=== PATIENT | male | born 1995 | race Caucasian/White ===

== ENCOUNTER 2018-05-16 20:06 | Observation (INO) | payer SELFPAY ==
[2018-05-16 20:46] LABS: EOS % 0.2 % (0-6); HEMOGLOBIN 16.8 gm/dl (14.0-18.0); LYMPH % 20.8 % (16-45); MEAN CELL VOLUME 92.3 fl (81-97); MEAN CORPUSCULAR HEMOGLOBIN 32.3 pg (27-33); PLATELET COUNT 131 K/uL (130-400); RED CELL DISTRIBUTION WIDTH 12.7 % (11.5-14.5); WHITE BLOOD COUNT W/O DIFF 5.2 K/uL (4.2-12.2)
[2018-05-16 20:56] LABS: BLOOD UREA NITROGEN 10 mg/dL (6-20); CREATININE 1.1 mg/dL (0.7-1.2); EST GLOMERULAR FILTRATION RATE > 60 mL/min
[2018-05-16 20:59] LABS: GLUCOSE,RANDOM 90 mg/dL (74-109)
[2018-05-16] MEDS ORDERED: CLINDAMYCIN 600MG/50ML PREMIX 600 MG/50 ML BAG IVPB ONE (21:08)
--- NOTE | 2018-05-16 21:11 | Emergency Department Record ---
History of Present Illness - General Chief complaint: Abscess Stated complaint: LT MIDDLE FINGER INFECTION Time Seen by Provider: 05/16/18 20:49 Source: Patient Mode of Arrival: Ambulatory Limitations: No limitations - History of Present Illness Initial comments: The patient is here due to a L 3rd finger infection for 4 days. Now the finger is quite swollen and tender and he has red streaking up to his axilla. The patient also has had a fever for about 24 hours. He denies any other issues. MD complaint: Abscess/boil Onset/Timin -: Days(s) Location: L hand Severity: Moderate Severity scale (1-10): 3 Quality: Aching Consistency: Constant, Getting worse Improves with: None Worsens with: None Context: None Associated symptoms: Denies other symptoms Treatments Prior to Arrival: Attempted to drain pus at home - Related Data Home Medications Medication Instructions Recorded Confirmed Last Taken Fluoxetine HCl 20 mg PO DAILY 05/16/18 05/16/18 Unknown Allergies Allergy/AdvReac Type Severity Reaction Status Date / Time No Known Drug Allergies Allergy Unverified 05/16/18 19:51 Travel Screening - Travel/Exposure Within Last 30 Days Have you traveled within the last 30 days?: No Review of Systems Constitutional: Reports: Chills, Fever, Malaise Eyes: Denies: Eye discharge ENT: Denies: Congestion Respiratory: Denies: Cough, Dyspnea Cardiovascular: Denies: Arrhythmia Endocrine: Denies: Fatigue Gastrointestinal: Denies: Abdominal pain Genitourinary: Denies: Dysuria Musculoskeletal: Denies: Arthralgia Past Medical History - SOCIAL HISTORY Smoking Status: Light tobacco smoker (<10/day) Alcohol Use: Occasional Drug Use: None - RESPIRATORY Hx Respiratory Disorders: No - CARDIOVASCULAR Hx Cardio Disorders: No - NEURO Hx Neuro Disorders: No - GI Hx GI Disorders: No - Hx Genitourinary Disorders: No - ENDOCRINE Hx Endocrine Disorders: No - MUSCULOSKELETAL Hx Musculoskeletal Disorders: No - PSYCH Hx Psych Problems: Yes Hx Depression: Yes - HEMATOLOGY/ONCOLOGY Hx Hematology/Oncology Disorders: No Family Medical History Any Significant Family History?: No Physical Exam - General General Appearance: Alert, Oriented x3, Cooperative, No acute distress - Head Head exam: Atraumatic, Normocephalic, Normal inspection - Eye Eye exam: Normal appearance, PERRL - Neck Neck exam: Normal inspection, Full ROM. negative: Tenderness - Respiratory Respiratory exam: Normal lung sounds bilaterally. negative: Respiratory distress - Cardiovascular Cardiovascular Exam: Regular rate, Normal rhythm, Normal heart sounds - Extremities Extremities exam: Full ROM (There is full flexion and extension of the L 3rd finger with no signs of a flexor tenosynovitis.), Tenderness (over the L 3rd finger. ). negative: Normal inspection (There is an erythematous dorsal L third finger at the nail fold with erythema and streaking up to the L axilla. ) Course Vital Signs 05/16/18 20:17 Temperature 100.7 F H Pulse Rate [ 96 H Pulse Ox Probe] Respiratory 20 Rate Blood Pressure 119/76 [Right Arm] Pulse Ox 98 - Reevaluation(s) Reevaluation #1: Procedure note: The L 3rd finger was anesth. using a digital block technique using 3 mls of Lido 1%. The dorsal nail fold was cleansed with alcohol and a # 11 blade was used to I and D the presumed paronychia. Unfortunately no purulence was removed and only some clear fluid and blood. There were no complications. 05/16/18 21:49 Medical Decision Making - Lab Data Result diagrams: 05/16/18 20:35 05/16/18 20:35 Lab Results 05/16/18 05/16/18 05/16/18 Range/Units 20:35 20:35 20:35 WBC 5.2 (4.2-12.2) K/uL RBC 5.20 (4.40-5.70) M/uL Hgb 16.8 (14.0-18.0) gm/dl Hct 48.0 (42.0-52.0) % MCV 92.3 (81-97) fl MCH 32.3 (27-33) pg MCHC 35.0 (32-36) g/dl RDW 12.7 (11.5-14.5) % Plt Count 131 (130-400) K/uL MPV 11.0 H (7.4-10.4) fl Gran % 64.0 (47-80) % Lymphocytes % 20.8 (16-45) % Monocytes % 14.0 H (0-9) % Eosinophils % 0.2 (0-6) % Basophils % 1.0 (0-6) % Sodium Cancelled 138 Potassium Cancelled 3.8 Chloride Cancelled 97 L Carbon Dioxide Cancelled 27.0 Anion Gap Cancelled 14.0 BUN Cancelled 10 Creatinine Cancelled 1.1 Estimated GFR Cancelled > 60 Random Glucose Cancelled 90 Lactic Acid 1.3 (0.5-2.2) mmol/L Calcium Cancelled 8.8 Disposition Disposition: Admit Clinical Impression: Cellulitis of hand Disposition: Still a Patient at [facility] Decision to Admit: Admit from ER Decision to Admit Date: 05/16/18 Decision to Admit Time: 21:51 Accepting Physician: Anitha Time Discussed w/Accepting Physician: 21:51 Condition: (2) Stable Time of Disposition: 21:51 Quality - Quality Measures Quality Measures: N/A - Blood Pressure Screening View Details: Yes Does Patient Have Any of the Following: No Blood Pressure Classification: Pre-Hypertensive BP Reading Systolic Measurement: 129 Diastolic Measurement: 76 Screening for High Blood Pressure: < Pre-Hypertensive BP, F/U Documented > [ G8950] Pre-Hypertensive Follow-up Interventions: Referral to alternative/primary care provider.
[2018-05-16] MEDS ORDERED: LIDOCAINE 1% MPF 100MG/10ML STERILE-PAK AMPULE IV ONE (21:17)
[2018-05-16] MEDS ORDERED: LIDOCAINE (XYLOCAINE) 1% MPF 10MG/ML 5ML VIAL ONE (21:18)
[2018-05-16] MEDS ORDERED: ACETAMINOPHEN 325 MG TAB PO PRN (22:10)
[2018-05-16] MEDS ORDERED: ACETAMINOPHEN 325 MG TAB PO ONE (22:11)
[2018-05-17] MEDS ORDERED: CLINDAMYCIN 600MG/50ML PREMIX 600 MG/50 ML BAG IVPB SCH (05:00)
--- NOTE | 2018-05-17 08:24 | History & Physical ---
History of Present Illness - Date of Service Date of Service for History & Physical: 05/17/18 - History of Present Illness Admitting Diagnosis: 1. L 3rd finger and hand Cellulitis and Lymphangitis. History of Present Illness: Mr. Mcdaniel is a 22 y/o male with a 5 day history of swelling and pain of the left middle finger. He says initially he noticed swelling around the nail bed and then he started having pain. He says the redness then started spreading up his arm and he had fevers and chills. The patient denies any injury to the finger and has not had any insect or animal bites on the hand. 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 On arrival to the ED the patient had labs drawn which are unremarkable. There was an attempt to alea what appeared to be a cyst but very little fluid was expressed. The patient was admitted and started on IV Cleocin and Tylenol for pain control. On examination this morning the patient does not complain of pain and says that the redness in his arm has gone down quite a bit. Vitals on admission: BP 129/76 HR 89 T 99.5 Sats 98% RR 16 PCP : No PCP Travel Screening - Travel/Exposure Within Last 30 Days Have you traveled within the last 30 days?: No - Travel/Exposure Within Last Year Have you traveled outside the [place] in the last year?: No - Additonal Travel Details Have you been exposed to anyone with a communicable illness?: No - Travel Symptoms Symptom Screening: None Review of Systems Constitutional: Reports: Chills, Fever, Malaise Eyes: Denies: Eye discharge ENT: Denies: Congestion Respiratory: Denies: Cough, Dyspnea Cardiovascular: Denies: Arrhythmia Endocrine: Denies: Fatigue Gastrointestinal: Denies: Abdominal pain Genitourinary: Denies: Dysuria Musculoskeletal: Denies: Arthralgia Past Medical History - SOCIAL HISTORY Smoking Status: Light tobacco smoker (<10/day) Alcohol Use: Occasional Drug Use: None - RESPIRATORY Hx Respiratory Disorders: No - CARDIOVASCULAR Hx Cardio Disorders: No - NEURO Hx Neuro Disorders: No - GI Hx GI Disorders: No - Hx Genitourinary Disorders: No - ENDOCRINE Hx Endocrine Disorders: No - MUSCULOSKELETAL Hx Musculoskeletal Disorders: No - PSYCH Hx Psych Problems: Yes Hx Depression: Yes - HEMATOLOGY/ONCOLOGY Hx Hematology/Oncology Disorders: No Family Medical History Any Significant Family History?: No H&P Meds/Allergies - Allergies Allergies: Allergies Allergy/AdvReac Type Severity Reaction Status Date / Time No Known Drug Allergies Allergy Unverified 05/16/18 19:51 - Home Medications Home Medications Medication Instructions Recorded Confirmed Last Taken Fluoxetine HCl 20 mg PO DAILY 05/16/18 05/16/18 Unknown - Active Medications Active Medications: Current Medications Acetaminophen (Tylenol 325mg) 650 mg PO Q4H PRN PRN Reason: PAIN - MILD(1-4)/FEVER Last Admin: 05/17/18 05:29 Dose: 650 mg Clindamycin Phosphate (Cleocin 600 [id number]) 600 mg in 50 mls @ 100 mls/ hr IVPB Q8H LANI Last Infusion: 05/17/18 05:58 Dose: Infused Physical Exam - Vital Signs Vital Signs: Vital Signs - Last 24 Hrs Temp Pulse Resp BP Pulse Ox 05/17/18 01:13 16 05/16/18 22:30 98.4 F 89 18 122/62 98 05/16/18 21:50 99.5 F 89 18 129/76 98 05/16/18 21:20 81 18 128/82 99 05/16/18 20:17 100.7 F H 96 H 20 119/76 98 - General General Appearance: Alert, Oriented x3, Cooperative, No acute distress Limitations: No limitations - Head Head exam: Atraumatic, Normocephalic, Normal inspection - Eye Eye exam: Normal appearance, PERRL - Neck Neck exam: Normal inspection, Full ROM. negative: Tenderness - Respiratory Respiratory exam: Normal lung sounds bilaterally. negative: Respiratory distress - Cardiovascular Cardiovascular Exam: Regular rate, Normal rhythm, Normal heart sounds Peripheral Pulses: 3+: Radial (R), Radial (L), Dorsalis Pedis (R), Dorsalis Pedis (L) - Extremities Extremities exam: Full ROM (There is full flexion and extension of the L 3rd finger with no signs of a flexor tenosynovitis.), Tenderness (over the L 3rd finger. ). negative: Normal inspection (There is an erythematous dorsal L third finger at the nail fold with erythema and streaking up to the L axilla. ) Image of Hand: 1 - swelling, redness, ,minimal drainage Image of Finger Tip: 1 - swelling, tenderness - Skin Type of lesion: Abscess (left 3rd distal phalange swelling , tenderness to touch , erythematous with extension to proximal forearm ) Results - Labs Result Diagrams: 05/16/18 20:35 05/16/18 20:35 Labs Last 24 Hours: Laboratory Results - last 24 hr 05/16/18 05/16/18 05/16/18 20:35 20:35 20:35 WBC 5.2 RBC 5.20 Hgb 16.8 Hct 48.0 MCV 92.3 MCH 32.3 MCHC 35.0 RDW 12.7 Plt Count 131 MPV 11.0 H Gran % 64.0 Lymphocytes % 20.8 Monocytes % 14.0 H Eosinophils % 0.2 Basophils % 1.0 Sodium Cancelled 138 Potassium Cancelled 3.8 Chloride Cancelled 97 L Carbon Dioxide Cancelled 27.0 Anion Gap Cancelled 14.0 BUN Cancelled 10 Creatinine Cancelled 1.1 Estimated GFR Cancelled > 60 Random Glucose Cancelled 90 Lactic Acid 1.3 Calcium Cancelled 8.8 VTE H&P Assessment - Risk for VTE Risk for VTE: No Risk Level: Very Low Risk Assessment Date: 05/17/18 Risk Assessment Time: 09:13 VTE Orders Placed or Will Be Placed: No VTE Reason for No Prophylaxis: Not Indicated (pt fully ambulatory, no risk factors ) Plan - Detailed Diagnosis and Plan (1) Cellulitis of hand Current Visit: Yes Status: Acute Base Code: L03.119 - CELLULITIS OF UNSPECIFIED PART OF LIMB Comment: 05/17/18: - cellulitis/paronychia of the distal left 3rd digit. no SIRS criteria. - on Cleocin IV 600mg IV Q8H and Tylenol 650mg Q6H PRN for pain. Change abx to PO Clindamycin 300mg TID x 7 days. Minimal fluid discharge so cx may not be possible. - wound care - keep dressing clean and dry. - follow up in Family Practice within 1 week for wound check and dressing. (2) Lymphangitis Current Visit: Yes Status: Acute Base Code: I89.1 - LYMPHANGITIS Comment: 05/17/18: - evidence of infection in lymph distribution up the right forearm. No axillary lymph nodes palpated. - on IV Cleocin 600mg Q8H, Tylenol 650mg PRN. (3) Depression Current Visit: Yes Status: Acute Base Code: F32.9 - MAJOR DEPRESSIVE DISORDER, SINGLE EPISODE, UNSPECIFIED Comment: 05/17/18: - on Fluoxetine. - Follows with a therapist for medication management. (4) Full code status Current Visit: Yes Status: Acute Base Code: Z78.9 - OTHER SPECIFIED HEALTH STATUS Comment: 05/17/18: - FULL CODE - Disposition Follow up with [facility] in 1 week for wound check.
--- NOTE | 2018-05-17 10:37 | Discharge Summary ---
Providers Discharge Summary Date: 05/17/18 Date of admission: 05/16/18 22:04 Attending physician: SARA CLEMOSN Physical Exam - Vital Signs Vital Signs: Vital Signs - Last 24 Hrs Temp Pulse Resp BP Pulse Ox 05/17/18 08:00 98.0 F 74 18 128/69 100 05/17/18 01:13 16 05/16/18 22:30 98.4 F 89 18 122/62 98 05/16/18 21:50 99.5 F 89 18 129/76 98 05/16/18 21:20 81 18 128/82 99 05/16/18 20:17 100.7 F H 96 H 20 119/76 98 - General General Appearance: Alert, Oriented x3, Cooperative, No acute distress Limitations: No limitations - Head Head exam: Atraumatic, Normocephalic, Normal inspection - Eye Eye exam: Normal appearance, PERRL - Neck Neck exam: Normal inspection, Full ROM. negative: Tenderness - Respiratory Respiratory exam: Normal lung sounds bilaterally. negative: Respiratory distress - Cardiovascular Cardiovascular Exam: Regular rate, Normal rhythm, Normal heart sounds Peripheral Pulses: 3+: Radial (R), Radial (L), Dorsalis Pedis (R), Dorsalis Pedis (L) - Extremities Extremities exam: Full ROM (There is full flexion and extension of the L 3rd finger with no signs of a flexor tenosynovitis.), Tenderness (over the L 3rd finger. ). negative: Normal inspection (There is an erythematous dorsal L third finger at the nail fold with erythema and streaking up to the L axilla. ) - Skin Type of lesion: Abscess (left 3rd distal phalange swelling , tenderness to touch , erythematous with extension to proximal forearm ) Hospitalization - Hospitalization Admission Diagnosis: 1. L 3rd finger and hand Cellulitis and Lymphangitis. - Problem List/Discharge Diagnosis (1) Cellulitis of hand Current Visit: Yes Status: Acute Base Code: L03.119 - CELLULITIS OF UNSPECIFIED PART OF LIMB Comment: 05/17/18: - cellulitis/paronychia of the distal left 3rd digit. no SIRS criteria. - on Cleocin IV 600mg IV Q8H and Tylenol 650mg Q6H PRN for pain. Change abx to PO Clindamycin 300mg TID x 7 days. Minimal fluid discharge so cx may not be possible. - wound care - keep dressing clean and dry. - follow up in Family Practice within 1 week for wound check and dressing. (2) Lymphangitis Current Visit: Yes Status: Acute Base Code: I89.1 - LYMPHANGITIS Comment: 05/17/18: - evidence of infection in lymph distribution up the right forearm. No axillary lymph nodes palpated. - on IV Cleocin 600mg Q8H, Tylenol 650mg PRN. (3) Depression Current Visit: Yes Status: Acute Base Code: F32.9 - MAJOR DEPRESSIVE DISORDER, SINGLE EPISODE, UNSPECIFIED Comment: 05/17/18: - on Fluoxetine. - Follows with a therapist for medication management. (4) Full code status Current Visit: Yes Status: Acute Base Code: Z78.9 - OTHER SPECIFIED HEALTH STATUS Comment: 05/17/18: - FULL CODE - Disposition Follow up with [facility] in 1 week for wound check. - Hospitalization Course Hospital Course: Mr. Mcdaniel is a 22 y/o male with a 5 day history of swelling and pain of the left middle finger. He says initially he noticed swelling around the nail bed and then he started having pain. He says the redness then started spreading up his arm and he had fevers and chills. The patient denies any injury to the finger and has not had any insect or animal bites on the hand. 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 On arrival to the ED the patient had labs drawn which are unremarkable. There was an attempt to alea what appeared to be a cyst but very little fluid was expressed. The patient was admitted and started on IV Cleocin and Tylenol for pain control. On examination this morning the patient does not complain of pain and says that the redness in his arm has gone down quite a bit. Vitals on admission: BP 129/76 HR 89 T 99.5 Sats 98% RR 16 PCP : No PCP Abnormal Labs: Abnormal Lab Results 05/16/18 05/16/18 Range/Units 20:35 20:35 MPV 11.0 H (7.4-10.4) fl Monocytes % 14.0 H (0-9) % Chloride 97 L (98-107) mmol/L Condition at Discharge: (2) Stable Discharge Medications - Discharge Medications Prescriptions: Clindamycin HCl 300 mg PO Q8HR 7 Days #21 capsule Acetaminophen [Tylenol 325Mg] 650 mg PO Q4H PRN #30 tablet PRN Reason: Pain - Mild(1-4)/Fever Home Medications: Ambulatory Orders Fluoxetine HCl 20 mg PO DAILY 05/16/18 [Last Taken Unknown] Acetaminophen [Tylenol 325Mg] 650 mg PO Q4H PRN #30 tablet 05/17/18 [Last Taken Unknown] Clindamycin HCl 300 mg PO Q8HR 7 Days #21 capsule 05/17/18 [Last Taken Unknown] Discharge Plan - Discharge Instructions Activity at Discharge: Resume Usual Activities As Tolerated Diet at Discharge: Regular Diet Wound Primary Dressing Type: Non-Adherent Gauze Pad Dressing Change: Daily Additional Instructions: Please follow up with [facility] for wound check in 1 week. You have been prescribed two medications: 1) Clindamycin 300mg every 8 hrs for the next 7 days. 2) Tylenol 325mg, take two tabs every 4 hrs, as needed for pain. Wound care: keep your finger/hand clean with dressing changes every other day. When showering cover the dressing with a plastic bag. If the dressing becomes wet re-dress it with clean dry gauze provided. If your pain worsens or if you have fevers chills, nausea or vomiting come in to [facility] or the ED. Quality Measures - Quality Measures Quality Measures: Documentation of Current Medications in Medical Record, Screening for High Blood Pressure and F/U Documented - Current Medications Quality Measure: Measure #130: Documentation of Current Medications Documentation of Current Medications: <Current Medications Documented/Reviewed> [G8450] - Blood Pressure Screening Quality Measure: Screening for High Blood Pressure and Follow-Up Documented Does Patient Have Any of the Following: No Blood Pressure Classification: Pre-Hypertensive BP Reading Systolic Measurement: 128 Diastolic Measurement: 69 Screening for High Blood Pressure: < Pre-Hypertensive BP, F/U Documented > [ G8950] Pre-Hypertensive Follow-up Interventions: Follow-up with rescreen every year. First Hypertensive Follow-up Interventions: Follow-up with rescreen GT 1 day and LT 4 weeks., Lifestyle modifications. Lifestyle Modification: Dietary Approaches to Stop Hypertension (DASH) Eating Plan, Dietary Sodium Restriction - Elder Abuse Suspicion Index EASI Reference Information: Hermelinda PHILIPPE, Valarie C, Jordan D, Anupama Leach.Development and validation of a tool to assist physicians identification of elder abuse: The Elder Abuse Suspicion Index (EASI ). Journal of Elder Abuse and Neglect, 2008; 20 (3): 276-300.
== END 2018-05-17 11:30 | disposition home or self-care (01) ==
LOC: ER 20:06 → MEDSURG 22:04
PROVIDERS: ADMIT Internal Medicine; ATTEND Internal Medicine
DX: L03.012 Cellulitis of left finger (principal); I89.1 Lymphangitis; F32.9 Major depressive disorder, single episode, unspecified; F17.210 Nicotine dependence, cigarettes, uncomplicated
CPT/HCPCS: 10060; 80048; 83605; 85025; 96365; 99220; 99285; J3490